=== PATIENT | female | born 1975 | race Hispanic/Latino ===

== ENCOUNTER 2016-05-04 15:42 | Outpatient (CLI) | payer OTHER ==
[2016-05-04 16:15] LABS: #Basophils 0.1 thou/uL (0.0-0.2); #Eosinphils 0.4 thou/uL (0.0-0.7); #Lymphocytes 2.4 thou/uL (1.20-3.40); #Monocytes 0.3 thou/uL (0.11-0.59); #Neutrophils 4.2 thou/uL (1.40-6.50); %Basophils 1.7 % (0.0-1.0); %Eosinophils 5.7 % (0.0-10.0); %Lymphocytes 32.1 % (21.0-51.0); %Monocytes 4.2 % (0.0-10.0); ALT (SGPT) 21 U/L (0-55); AST (SGOT) 20 U/L (5-34); Alkaline Phosphatase 80 U/L (40-150); Anion Gap 14 mmol/L (10-20); BUN (Urea Nitrogen) 10 mg/dL (7.0-18.7); Bilirubin, Total 0.2 mg/dL (0.2-1.2); Calc. Creatinine Clearance 0 mL/min (70-130); Calcium 9.1 mg/dL (7.8-10.44); Carbon Dioxide 25 mmol/L (22-29); Chloride 107 mmol/L (98-107); Estimated GFR-MDRD 86; Hematocrit 35.5 % (36.0-47.0); Mean Platelet Volume 7.9 fL (7.4-10.4); Protein, Total 6.9 g/dL (6.0-8.3); Red Blood Cell (RBC) Count 4.44 mill/uL (4.20-5.40); White Blood Cell (WBC) Count 7.5 thou/uL (4.8-10.8)
[2016-05-04 16:17] LABS: Hemoglobin A1c 5.7 % (4.0-6.0)
== END 2016-05-04 15:43 | disposition home or self-care (01) ==
LOC: NAV SJFMSP 15:42
PROVIDERS: ATTEND Family Medicine
DX: D64.9 Anemia, unspecified (principal); R73.09 Other abnormal glucose
CPT/HCPCS: 80053; 83036; 85025